=== PATIENT | female | born 1995 | race Caucasian/White ===

== ENCOUNTER 2023-01-20 07:34 | Inpatient (IN) | payer MEDICAID ==
[~2023-01-20] VITALS: Ht 165.1 cm; Wt 51.5 kg
[2023-01-20] MEDS ORDERED: LORazepam 2 MG/ML VIAL IM ONE (07:45)
[2023-01-20] MEDS ORDERED: HALOPERIDOL LACTATE 5 MG/ML VIAL IM ONE (07:45)
[2023-01-20] MEDS ORDERED: DiphenhydrAMINE HCL 50 MG/ML VIAL IM ONE (07:45)
[2023-01-20 08:07] LABS: BASOPHILS % (AUTO) 0.5 % (0.0-2.0); EOSINOPHILS % (AUTO) 0.2 % (1.0-6.0); HEMOGLOBIN 13.8 g/dL (12.0-16.0); LYMPHOCYTES # (AUTO) 1.1 K/uL (1.0-4.8); LYMPHOCYTES % (AUTO) 12.4 % (22.0-44.0); MEAN CORPUSCULAR HEMOGLOBIN 32.8 pg (26.0-34.0); MEAN CORPUSCULAR HGB CONC 34.6 G/dL (31.0-37.0); MEAN CORPUSCULAR VOLUME 95 fL (80-100); MONOCYTES # (AUTO) 0.6 K/uL (0.1-1.0); MONOCYTES % (AUTO) 6.2 % (2.0-9.0); NEUTROPHILS # (AUTO) 7.3 K/uL (1.8-7.7); NEUTROPHILS % (AUTO) 80.7 % (40.0-70.0); PLATELET COUNT (AUTO) 322 K/uL (150-450); RED BLOOD CELL COUNT(AUTO) 4.22 MIL/uL (4.00-5.20); RED CELL DISTRIBUTION WIDTH 12.4 % (11.5-14.5)
[2023-01-20 08:17] LABS: ANION GAP 17 mmol/L (8-16); CALCIUM, TOTAL 9.5 mg/dL (8.8-10.5); CARBON DIOXIDE 22 mmol/L (22-29); CHLORIDE 103 mmol/L (98-107); GLOMERULAR FILTR. RATE CALC 43 mL/min (>60); GLUCOSE,RANDOM 139 mg/dL (70-110); POTASSIUM 3.2 mmol/L (3.5-5.1); SODIUM SERUM 142 mmol/L (136-145); UREA NITROGEN, BLOOD 17 mg/dL (7-18)
[2023-01-20 08:23] LABS: ALANINE AMINOTRANSFERASE 16 U/L (12-78); ALBUMIN 4.1 g/dL (3.4-5.0); ALKALINE PHOSPHATASE 74 U/L (46-116); ASPARTATE AMINOTRANSFERASE 27 U/L (15-37); BILIRUBIN,TOTAL 1.9 mg/dL (0.1-1.0); TOTAL PROTEIN, SERUM 7.7 g/dL (6.4-8.2)
[2023-01-20 08:32] LABS: AMPHET/METH SCREEN,URINE NEGATIVE (NEGATIVE); BARBITURATE SCREEN, URINE NEGATIVE (NEGATIVE); BENZODIAZEPINES SCREEN,URINE NEGATIVE (NEGATIVE); CANNABINOID SCREEN,URINE NEGATIVE (NEGATIVE); COCAINE SCREEN,URINE NEGATIVE (NEGATIVE); METHADONE SCREEN, URINE NEGATIVE (NEGATIVE); OPIATE SCREEN,URINE NEGATIVE (NEGATIVE); PHENCYCLIDINE SCREEN,URINE NEGATIVE (NEGATIVE)
[2023-01-20] MEDS ORDERED: ZOLPIDEM TARTRATE 10 MG TABLET PO PRN (10:15)
[2023-01-20] MEDS ORDERED: LORazepam 2 MG TABLET PO PRN (10:15)
[2023-01-20] MEDS ORDERED: HALOPERIDOL 5 MG TABLET PO PRN (10:15)
[2023-01-20 11:24] LABS: COVID AG,FIA SOURCE NASOPHARYNGEAL
[2023-01-20] MEDS ORDERED: POTASSIUM CHLORIDE 20 MEQ ER TABLET PO ONE (11:30)
[2023-01-20 13:48] VITALS: BP 113/66
[2023-01-20] MEDS ORDERED: INFLUENZA VIRUS VACCINE QVS 2022-23 (6MO+)/PF 60 MCG/0.5 ML SYRINGE IM. ONE (14:00)
[2023-01-21 08:46] VITALS: BP 112/77
[2023-01-21 20:25] VITALS: BP 118/77
[2023-01-21] MEDS: LITHIUM CARBONATE 300 MG CAPSULE PO SCH (20:50)
[2023-01-21] MEDS: RisperiDONE 3 MG TABLET PO SCH (20:50)
[2023-01-21] MEDS: DIVALPROEX SODIUM 500 MG DR TABLET PO SCH (20:50)
[2023-01-21] MEDS ORDERED: DOCUSATE SODIUM 100 MG CAPSULE PO PRN (23:00)
[2023-01-21] MEDS ORDERED: OMEPRAZOLE 20 MG CAPSULE PO PRN (23:00)
[2023-01-21] MEDS ORDERED: MAG HYDROX/AL HYDROX/SIMETH ES 30 ML SUSPENSION UDCUP PO PRN (23:00)
[2023-01-21] MEDS ORDERED: ONDANSETRON HCL 4 MG TABLET PO PRN (23:00)
[2023-01-21] MEDS ORDERED: IBUPROFEN 600 MG TABLET PO PRN (23:00)
[2023-01-21] MEDS ORDERED: BACITRACIN 28 GM OINTMENT TP PRN (23:00)
[2023-01-21] MEDS ORDERED: ACETAMINOPHEN 325 MG TABLET PO PRN (23:00)
[2023-01-21] MEDS ORDERED: BENZOCAINE/MENTHOL LOZENGE PO PRN (23:00)
[2023-01-21] MEDS ORDERED: MAGNESIUM HYDROXIDE SUSPENSION 30 ML UDCUP PO PRN (23:00)
[2023-01-21] MEDS ORDERED: CloNIDine HCL 0.1 MG TABLET PO PRN (23:00)
[2023-01-21] MEDS ORDERED: ALBUTEROL SULFATE HFA 90 MCG/PUFF 8 GM INHALER IH PRN (23:00)
[2023-01-21] MEDS ORDERED: LOPERAMIDE HCL 2 MG CAPSULE PO PRN (23:00)
[2023-01-21] MEDS ORDERED: PETROLATUM,WHITE 28 GM JELLY TP PRN (23:00)
[2023-01-22 07:23] LABS: BASOPHILS % (AUTO) 1.1 % (0.0-2.0); EOSINOPHILS % (AUTO) 2.1 % (1.0-6.0); HEMOGLOBIN 14.9 g/dL (12.0-16.0); LYMPHOCYTES % (AUTO) 34.2 % (22.0-44.0); MEAN CORPUSCULAR HGB CONC 34.7 G/dL (31.0-37.0); MEAN CORPUSCULAR VOLUME 95 fL (80-100); MONOCYTES # (AUTO) 0.5 K/uL (0.1-1.0); MONOCYTES % (AUTO) 8.5 % (2.0-9.0); NEUTROPHILS # (AUTO) 3.2 K/uL (1.8-7.7); NEUTROPHILS % (AUTO) 54.1 % (40.0-70.0); PLATELET COUNT (AUTO) 340 K/uL (150-450); RED BLOOD CELL COUNT(AUTO) 4.53 MIL/uL (4.00-5.20); RED CELL DISTRIBUTION WIDTH 12.6 % (11.5-14.5)
[2023-01-22 07:42] LABS: AMPHET/METH SCREEN,URINE NEGATIVE (NEGATIVE); BARBITURATE SCREEN, URINE NEGATIVE (NEGATIVE); BENZODIAZEPINES SCREEN,URINE NEGATIVE (NEGATIVE); CANNABINOID SCREEN,URINE NEGATIVE (NEGATIVE); COCAINE SCREEN,URINE NEGATIVE (NEGATIVE); METHADONE SCREEN, URINE NEGATIVE (NEGATIVE); OPIATE SCREEN,URINE NEGATIVE (NEGATIVE); PHENCYCLIDINE SCREEN,URINE NEGATIVE (NEGATIVE)
[2023-01-22 07:44] LABS: ALANINE AMINOTRANSFERASE 25 U/L (12-78); ALBUMIN 4.4 g/dL (3.4-5.0); ALKALINE PHOSPHATASE 86 U/L (46-116); ANION GAP 11 mmol/L (8-16); ASPARTATE AMINOTRANSFERASE 43 U/L (15-37); BILIRUBIN,TOTAL 2.6 mg/dL (0.1-1.0); CALCIUM, TOTAL 9.6 mg/dL (8.8-10.5); CARBON DIOXIDE 29 mmol/L (22-29); CHLORIDE 100 mmol/L (98-107); CREATININE 0.87 mg/dL (0.60-1.30); GLOMERULAR FILTR. RATE CALC > 60 mL/min (>60); GLUCOSE,RANDOM 81 mg/dL (70-110); POTASSIUM 3.3 mmol/L (3.5-5.1); SODIUM SERUM 140 mmol/L (136-145); TOTAL PROTEIN, SERUM 8.7 g/dL (6.4-8.2); UREA NITROGEN, BLOOD 14 mg/dL (7-18)
[2023-01-22] MEDS: RisperiDONE 3 MG TABLET PO SCH ×2 (08:23→20:09)
[2023-01-22] MEDS: DIVALPROEX SODIUM 500 MG DR TABLET PO SCH ×2 (08:23→20:09)
[2023-01-22] MEDS: LITHIUM CARBONATE 300 MG CAPSULE PO SCH ×2 (08:23→20:09)
[2023-01-22 08:34] VITALS: BP 120/71
[2023-01-22] MEDS ORDERED: POTASSIUM CHLORIDE 20 MEQ ER TABLET PO ONE (10:15)
[2023-01-22 20:24] VITALS: BP 140/90
[2023-01-23 02:07] LABS: HEPATITIS C AB (EIA) Non Reactive (Non Reactive)
[2023-01-23 08:25] VITALS: BP 113/61
[2023-01-23] MEDS: DIVALPROEX SODIUM 500 MG DR TABLET PO SCH ×2 (08:50→20:18)
[2023-01-23] MEDS: LITHIUM CARBONATE 300 MG CAPSULE PO SCH ×2 (08:50→20:18)
[2023-01-23] MEDS: RisperiDONE 3 MG TABLET PO SCH ×2 (08:50→20:18)
[2023-01-23 20:37] VITALS: BP 101/65
[2023-01-24 08:46] VITALS: BP 96/83
[2023-01-24] MEDS: DIVALPROEX SODIUM 500 MG DR TABLET PO SCH ×2 (09:19→20:21)
[2023-01-24] MEDS: RisperiDONE 3 MG TABLET PO SCH ×2 (09:19→20:21)
[2023-01-24] MEDS: LITHIUM CARBONATE 300 MG CAPSULE PO SCH ×2 (09:19→20:22)
[2023-01-24 20:30] VITALS: BP 102/68
[2023-01-25] MEDS: DIVALPROEX SODIUM 500 MG DR TABLET PO SCH ×2 (08:55→20:49)
[2023-01-25] MEDS: RisperiDONE 3 MG TABLET PO SCH ×2 (08:55→20:49)
[2023-01-25] MEDS: LITHIUM CARBONATE 300 MG CAPSULE PO SCH ×2 (08:55→20:49)
[2023-01-25 09:10] VITALS: BP 106/68
[2023-01-25 20:39] VITALS: BP 102/66
[2023-01-26 08:21] VITALS: BP 102/67
[2023-01-26] MEDS: DIVALPROEX SODIUM 500 MG DR TABLET PO SCH (09:08)
[2023-01-26] MEDS: RisperiDONE 3 MG TABLET PO SCH (09:09)
[2023-01-26] MEDS: LITHIUM CARBONATE 300 MG CAPSULE PO SCH (09:09)
[2023-01-26] MEDS ORDERED: LITH300C3 PO (16:54)
[2023-01-26] MEDS ORDERED: RISP3TAB63 PO (16:54)
[2023-01-26] MEDS ORDERED: DIVA-112 PO (16:54)
== END 2023-01-26 17:30 | disposition home or self-care (01) | DRG 750 ==
LOC: EDBD 07:36 → EMS 07:36 → B2S 12:13 → EDBD 12:13
PROVIDERS: ADMIT Psychiatry & Neurology Psychiatry; ATTEND Psychiatry & Neurology Psychiatry
DX: F20.9 Schizophrenia, unspecified (principal); E87.6 Hypokalemia; F41.9 Anxiety disorder, unspecified; G47.00 Insomnia, unspecified; Z20.822 Contact with and (suspected) exposure to COVID-19; K59.00 Constipation, unspecified
CPT/HCPCS: 51701; 80053; 80307; 82140; 83735; 84100; 85025; 86803; 87340; 99285; G0480; J1200; J1630; J2060